=== PATIENT | male | born 1985 | race Caucasian/White ===

== ENCOUNTER 2021-01-10 17:22 | Emergency (ER) | payer BC ==
[~2021-01-10] VITALS: Ht 167.6 cm; Wt 81.6 kg
--- NOTE | 2021-01-10 17:22 | NUR ---
PT BIB SELF C/O DIZZINESS FOR 3 DAYS. PT IS AAOX4, NOT IN RESPIRATORY DISTRESS, V/S STABLE, KEPT RESTED AND COMFORTABLE. WILL CONTINUE TO MONITOR.
--- NOTE | 2021-01-10 17:38 | NUR ---
PT SEEN AND EXAMINED BY DENNYS RAI.
--- NOTE | 2021-01-10 17:51 | NUR ---
ER PHLEB AT BEDSIDE FOR BLOOD DRAW.
[2021-01-10 18:00] LABS: BASOPHILS % (AUTO) 0.3 % (0.0-2.0); EOSINOPHILS % (AUTO) 2.7 % (0.0-6.0); HEMATOCRIT 45 % (39-51); HEMOGLOBIN 15.5 g/dL (13.5-17.5); LYMPHOCYTES # (AUTO) 2.8 K/uL (0.8-4.8); LYMPHOCYTES % (AUTO) 36.6 % (20.0-44.0); MEAN CORPUSCULAR HGB CONC 34 g/dl (31.0-36.0); MEAN CORPUSCULAR VOLUME 90 fL (80-96); MONOCYTES # (AUTO) 0.5 K/uL (0.1-1.30); NEUTROPHILS # (AUTO) 4.1 K/uL (1.8-8.9); NEUTROPHILS % (AUTO) 53.4 % (43.0-81.0); PLATELET COUNT (AUTO) 198 K/uL (150-450); RED BLOOD CELL COUNT(AUTO) 5.02 MIL/uL (4.5-6.0); WHITE BLOOD COUNT (AUTO) 7.8 K/uL (4.3-11.0)
[2021-01-10 18:07] LABS: CALCIUM, SERUM 9.4 mg/dL (8.5-10.1); CREATININE 0.7 mg/dL (0.6-1.3); POTASSIUM 3.5 mmol/L (3.5-5.1)
[2021-01-10] MEDS ORDERED: MECLIZINE HCL 12.5 MG TABLET PO ONE (18:30)
[2021-01-10] MEDS ORDERED: MECL-159 PO (18:31)
[2021-01-10] MEDS ORDERED: MECLIZINE HCL 25 MG TABLET ONE (18:35)
[2021-01-10 18:43] VITALS: BP 129/84
--- NOTE | 2021-01-10 18:43 | NUR ---
Patient discharged to home in stable condition. Written and verbal after care instructions given. Patient verbalizes understanding of instruction.
== END 2021-01-10 18:47 | disposition home or self-care (01) ==
LOC: ER 17:27
DX: R42 Dizziness and giddiness (principal)
CPT/HCPCS: 36415; 80048; 85025; 93005; 99284; J8597

== ENCOUNTER 2021-04-22 00:13 | Emergency (ER) | payer BC ==
[~2021-04-22] VITALS: Ht 167.6 cm; Wt 81.6 kg
[~2021-04-22 00:13] MED LIST: MECL-159 PO
[2021-04-22] MEDS ORDERED: IBUPROFEN 400 MG TABLET ONE (00:35)
--- NOTE | 2021-04-22 00:40 | NUR ---
Patient discharged to home in stable condition. Written and verbal after care instructions given. Patient verbalizes understanding of instruction.
[2021-04-22 00:52] VITALS: BP 142/96
[2021-04-22] MEDS ORDERED: IBUPROFEN 400 MG TABLET PO ONE (01:00)
== END 2021-04-22 00:54 | disposition home or self-care (01) ==
LOC: ER 00:19
DX: S29.011A Strain of muscle and tendon of front wall of thorax, initial encounter (principal); M62.830 Muscle spasm of back; M54.12 Radiculopathy, cervical region; X58.XXXA Exposure to other specified factors, initial encounter; Y93.89 Activity, other specified; Y92.89 Other specified places as the place of occurrence of the external cause; Y99.8 Other external cause status

== ENCOUNTER 2024-11-06 00:52 | Emergency (ER) | payer BC ==
[~2024-11-06] VITALS: Ht 172.7 cm; Wt 81.6 kg
[2024-11-06 02:05] VITALS: BP 133/81; TEMP 98.4; O2SAT 98
== END 2024-11-06 02:36 | disposition left against medical advice (07) ==
LOC: ER 00:55
DX: R07.2 Precordial pain (principal)